=== PATIENT | male | born 1970 | race Caucasian/White ===

== ENCOUNTER 2017-01-24 11:59 | Emergency (ER) | payer OTHER, BC ==
[~2017-01-24] VITALS: Ht 180.3 cm; Wt 101.5 kg
[2017-01-24 13:25] LABS: BASOPHIL COUNT 0.1 K/uL (0-0.1); EOSINOPHIL (%) 3.6 % (0-5); EOSINOPHIL COUNT 0.3 K/uL (0-0.3); HEMATOCRIT 40.1 % (38.0-50.0); IMMATURE GRANULOCYTE (%) 0.5 % (0.0-0.7); INSTRUMENT ABS NEUTROPHIL CT 5.3 K/uL; LYMPHOCYTE COUNT 2.4 K/uL (1.0-2.8); MCH 26.6 PG (29.0-34.0); MCHC 31.9 G/DL (30.0-36.0); MCV 83.2 FL (86-99); MONOCYTE (%) 7.5 % (3-12); MONOCYTE COUNT 0.7 K/uL (0-0.8); NEUTROPHIL (%) 60.8 % (45-76); NEUTROPHIL COUNT 5.3 K/uL (1.8-6.4); PLATELET COUNT 315 K/uL (156-360); RBC DIS.WIDTH-CV 13.1 % (11.8-14.6); RBC DIS.WIDTH-SD 39.3 % (39-53); RED BLOOD COUNT 4.82 M/uL (4.00-5.50); WHITE BLOOD COUNT 8.8 K/uL (4.1-10.2)
[2017-01-24 13:37] LABS: CHLORIDE 104 mEq/L (99-109); POTASSIUM 3.9 mEq/L (3.7-5.4); SODIUM 136 mEq/L (136-147)
[2017-01-24 13:39] LABS: GLUCOSE 134 mg/dL (70-99)
[2017-01-24 13:40] LABS: ANION GAP 10 MEQ/L (2-14)
[2017-01-24 13:43] LABS: GFR ESTIMATE (CALCULATED) > 59 mL/min/
[2017-01-24 13:44] LABS: UREA NITROGEN (BUN) 16 mg/dL (9-23)
[2017-01-24 13:49] LABS: TROP-I INTERPRETATION NEGATIVE; TROPONIN-I < 0.01 ng/mL (0.0-0.30)
[2017-01-24 14:39] LABS: TROP-I INTERPRETATION NEGATIVE; TROPONIN-I < 0.01 ng/mL (0.0-0.30)
[2017-01-24 15:33] VITALS: BP 111/66
== END 2017-01-24 15:35 | disposition home or self-care (01) ==
LOC: EDBD 11:59 → EME 11:59
PROVIDERS: Emergency Medicine
DX: R07.89 Other chest pain (principal); M25.512 Pain in left shoulder; Z95.1 Presence of aortocoronary bypass graft; Z87.891 Personal history of nicotine dependence
CPT/HCPCS: 71010; 80048; 84484; 85025; 93005; 99281; 99285